=== PATIENT | female | born 1995 | race Two or more races ===

== ENCOUNTER 2017-01-29 18:26 | Emergency (ER) | payer SELFPAY ==
[2017-01-29 19:00] LABS: BASO % 0.5 % (0.2-1.0); EOS % 0.3 % (0.9-2.9); HEMATOCRIT 36.3 % (37.0-47.0); HEMOGLOBIN 12.2 gm/l (12.0-16.0); IMM NEUT% 0.2 % (0-1); LYMPH # 2.2 (1.0-4.8); LYMPH % 24.5 % (15-45); MEAN CELL VOLUME 92.6 fl (81.0-99.0); MEAN CORPUSCULAR HEMOGLOBIN 31.1 pg (27.0-31.0); MEAN CORPUSCULAR HGB CONC 33.6 g/dl (33.0-37.0); MEAN PLATELET VOLUME 10.4 fl (7.4-10.4); MONO # 0.6 (0.0-0.8); MONO % 6.9 % (4-12); NEUT % 67.6 % (43-75); PLATELET COUNT 256 K/mm3 (130-400); RED CELL DISTRIBUTION WIDTH 12.5 % (11.5-14.5)
--- NOTE | 2017-01-29 20:17 | US ---
OB COMP <14 WKS, OB TRANSVAGINAL CLINICAL HISTORY: and bleeding. MGA 19 weeks 1 day. EDC 09/02/2017. . Uterine cramping and bleeding. COMPARISON: None TECHNIQUE: Transabdominal and transvaginal. FINDINGS: Uterus: Single intrauterine gestation. Gestational sac size and shape: Normal size and shape. Mean sac diameter: 2.9 cm = 7 weeks 6 days. [place] rump length: 2.2 cm = 8 weeks 6 days. Estimated date of confinement: 09/04/2017 Embryo: Yes Yolks sac: Yes heart tones: Yes 164 Beats per minute Somatic motion: Present Placenta: Too early to comment. Previa: Too early comment. Lucinda-gestational bleed: On the right, 2.7 x 0.5 x 1.7 cm. In the lower uterine segment, 0.8 x 1.3 x 2.3 cm. Right ovary: 1.1 x 2.7 x 1.4 cm. Normal blood flow. Left ovary: 2.3 x 1.8 x 3.0 cm. Normal blood flow. Impression: 1. Live intrauterine gestation, average ultrasound age 8 weeks 6 days. EDC 09/04/2017. 2. There are 2 sites of perigestational bleed, on the right and in the lower uterine segment. The report was sent to the emergency department electronic medical record system 01/29/2017 at 20:18
[2017-01-29 20:19] LABS: PH,URINE 6.5 (5.0-8.0); SPECIFIC GRAVITY 1.015 (1.001-1.030); URINE BILIRUBIN NEGATIVE (NEGATIVE); URINE BLOOD 4+ (NEGATIVE); URINE GLUCOSE (UA) NEGATIVE (NEGATIVE); URINE LEUKOCYTE ESTERASE NEGATIVE (NEGATIVE); URINE NITRITE NEGATIVE (NEGATIVE); URINE PROTEIN TRACE (NEGATIVE); URINE UROBILINOGEN NORMAL (0-1 mg/dl)
[2017-01-29 20:29] LABS: URINE APPEARANCE SL CLOUDY; URINE COLOR YELLOW
[2017-01-29 21:10] LABS: URINE BACTERIA RARE; URINE EPITHELIAL CELLS 0-3 /hpf; URINE WBC 0-2 /hpf
== END 2017-01-29 20:42 | disposition home or self-care (01) ==
LOC: ED 18:26
DX: O20.0 Threatened abortion (principal); Z3A.08 8 weeks gestation of pregnancy